=== PATIENT | male | born 1945 | race Caucasian/White ===

== ENCOUNTER → 2016-11-11 | Outpatient (CLI) | payer BC | LOC: COL.VAS 14:07 | DX: I34.0 Nonrheumatic mitral (valve) insufficiency (principal); R94.39 Abnormal result of other cardiovascular function study; R06.02 Shortness of breath ==

== ENCOUNTER 2018-11-02 10:23 | Day surgery (SDC) | payer BC ==
[~2018-11-02] VITALS: Ht 180.3 cm; Wt 118.5 kg
[2018-11-02 10:37] VITALS: BP 170/88; PULSE 76; TEMP 98.3
--- NOTE | 2018-11-02 10:51 | NUR ---
Initial visit; Patient thanked Executive Communications Manager for offering encouragement and prayer prior to his colonoscopy.
[2018-11-02] MEDS ORDERED: ZOCOR 10MG10 MG PO (10:52)
[2018-11-02] MEDS ORDERED: NORCO 325 MG-7.1 TAB PO (10:53)
[2018-11-02] MEDS ORDERED: ATACAND8 MG PO (10:53)
[2018-11-02] MEDS ORDERED: FLOMAX 0.40.4 MG/CAP PO (10:54)
[2018-11-02] MEDS ORDERED: MINOCYCLIN100 MG/CAP PO (10:54)
[2018-11-02] MEDS ORDERED: PROPECIA1 MG PO (10:55)
[2018-11-02] MEDS ORDERED: TIROSINT50 MC1 PO (10:55)
[2018-11-02] MEDS ORDERED: KRILL OIL 3001 EACH PO (10:56)
[2018-11-02] MEDS ORDERED: LIORESAL 1010 MG/TAB PO (10:56)
[2018-11-02] MEDS ORDERED: GLUCOSAMINE 1000 PO (10:57)
[2018-11-02] MEDS ORDERED: ASPIRIN 81M81 MG/TA2 PO (10:58)
[2018-11-02] MEDS ORDERED: ALLEGRA-D 24HR1 T24 PO (10:58)
[2018-11-02] MEDS ORDERED: PRILOTC PO (10:59)
[2018-11-02] MEDS ORDERED: SUPER B COMPLEX PO (11:01)
[2018-11-02] MEDS ORDERED: COENZYME Q-10200 M1 PO (11:01)
[2018-11-02] MEDS ORDERED: MAGNESIUM250 M1 PO (11:02)
[2018-11-02] MEDS ORDERED: MULTIPLE VITAMI1 CAP PO (11:03)
[2018-11-02] MEDS ORDERED: PROBIOTIC FORMU1 CAP PO (11:04)
[2018-11-02] MEDS ORDERED: COLACE 100100 MG/CAP PO (11:05)
[2018-11-02] MEDS ORDERED: [UNRECOGNIZED DRUG - OTHER] PO (11:07)
[2018-11-02] MEDS ORDERED: NATURAL POTASS595 MG PO (11:07)
[2018-11-02] MEDS ORDERED: BENADRYL25 M2 PO (11:08)
[2018-11-02 12:20] VITALS: BP 132/77; PULSE 75
--- NOTE | 2018-11-02 12:20 | NUR ---
Patient returns to GI bay 5 per cart and is awake and alert. Transfers from cart to recliner with standby assist. IV fluids infusing and denies pain or nausea. Spouse in room and call light in reach.
[2018-11-02 12:35] VITALS: BP 127/76; PULSE 76
--- NOTE | 2018-11-02 12:35 | NUR ---
Tolerated muffin and juice. Watches TV and awaits Dr. Howe.
[2018-11-02 12:50] VITALS: BP 123/71; PULSE 73
--- NOTE | 2018-11-02 13:15 | NUR ---
Discharge instructions reviewed with patient and [place]. All questions answered. No concerns. [facility] To be driven home by [place].
== END 2018-11-02 13:15 | disposition home or self-care (01) ==
LOC: SDCO 10:23
DX: Z12.11 Encounter for screening for malignant neoplasm of colon (principal); K57.30 Diverticulosis of large intestine without perforation or abscess without bleeding; I10 Essential (primary) hypertension; E78.00 Pure hypercholesterolemia, unspecified; Z86.010 Personal history of colon polyps; Z79.82 Long term (current) use of aspirin
CPT/HCPCS: J2250; J2405; J3010; J7030

== ENCOUNTER → 2022-06-24 | Outpatient (CLI) | payer MEDICARE ==
[~2022-06-24] MED LIST: ALLEGRA-D 24HR1 T24 PO; ASPIRIN 81M81 MG/TA2 PO; ATACAND8 MG PO; BENADRYL25 M2 PO; COENZYME Q-10200 M1 PO; COLACE 100100 MG/CAP PO; FLOMAX 0.40.4 MG/CAP PO; GLUCOSAMINE 1000 PO; KRILL OIL 3001 EACH PO; LIORESAL 1010 MG/TAB PO; MAGNESIUM250 M1 PO; MINOCYCLIN100 MG/CAP PO; MULTIPLE VITAMI1 CAP PO; NATURAL POTASS595 MG PO; NORCO 325 MG-7.1 TAB PO; PRILOTC PO; PROBIOTIC FORMU1 CAP PO; PROPECIA1 MG PO; SUPER B COMPLEX PO; TIROSINT50 MC1 PO; ZOCOR 10MG10 MG PO; [UNRECOGNIZED DRUG - OTHER] PO
== END ==
LOC: COL.RAD 12:05
DX: K44.9 Diaphragmatic hernia without obstruction or gangrene (principal)

== ENCOUNTER 2023-11-24 10:32 | Day surgery (SDC) | payer MEDICARE ==
[~2023-11-24] VITALS: Ht 180.3 cm; Wt 123.4 kg
[~2023-11-24 10:32] MED LIST changes: +LR 1,000 ML IV SCH; +Ondansetron 4 MG/2 ML VIAL IV PRN
[2023-11-24 11:36] VITALS: BP 146/100; PULSE 77; TEMP 98.8
[2023-11-24] MEDS ORDERED: FLONASEALLERGY NS (11:50)
[2023-11-24] MEDS ORDERED: XALATAN EYE DROPS OU (11:50)
[2023-11-24] MEDS ORDERED: CELEXA 20MG20 MG/TAB PO (11:52)
[2023-11-24 12:08] VITALS: TEMP 98
[2023-11-24 12:10] VITALS: BP 117/83; PULSE 81
[2023-11-24 12:25] VITALS: BP 140/91; PULSE 67
--- NOTE | 2023-11-24 12:40 | NUR ---
PT ARRIVED BACK @ ROOM @ 1210, A&OX4, ASSISTED BACK TO CHAIR IN ROOM VIA STANDBY ASSIST. PT HAD COLONOSCOPY W/OUT BIOPSIES OR POLYPS, DIVERTICULOSIS FOUND BUT W/OUT ANY ABNORMALITIES/COMPLICATIONS. 20G TO RT AC WAS REMOVED @ 1228 AND PT INSTRUCTIONS GONE OVER @ 1232; EXPRESSED UNDERSTANDING W/OUT QUESTIONS. PT TOLERATED PO FLUIDS AND FOOD W/OUT DIFFICULTY OR PAIN. DR. GIBSON SAW PT TO GO OVER FINDINGS @ 1242. PT DISCHARGED HOME W/ SPOUSE @ 1246.
== END 2023-11-24 12:46 | disposition home or self-care (01) ==
LOC: SDCO 10:32
DX: Z12.11 Encounter for screening for malignant neoplasm of colon (principal); Z86.010 Personal history of colon polyps; K57.30 Diverticulosis of large intestine without perforation or abscess without bleeding; G47.33 Obstructive sleep apnea (adult) (pediatric)
CPT/HCPCS: J2704; J7120

== ENCOUNTER → 2024-04-30 | Outpatient (CLI) | payer MEDICARE, OTHER ==
[~2024-04-30] MED LIST changes: +CELEXA 20MG20 MG/TAB PO; +FLONASEALLERGY NS; -LR 1,000 ML IV SCH; -Ondansetron 4 MG/2 ML VIAL IV PRN; +XALATAN EYE DROPS OU
== END ==
LOC: COL.VAS 09:35
DX: I51.7 Cardiomegaly (principal)